=== PATIENT | female | born 1980 | race Caucasian/White ===

== ENCOUNTER 2022-12-07 16:15 | Emergency (ER) | payer OTHER, SELFPAY ==
--- NOTE | ~2022-12-07 | XR_ITS ---
EXAMINATION: Right knee. Right hip and AP pelvis. CLINICAL INDICATIONS: Pain. No injury. COMPARISON: None. TECHNIQUE: 4 views right knee and 3 views AP pelvis and right hip. FINDINGS: RIGHT KNEE: The tricompartment joint space is maintained normal. No fracture, loose bodies or joint effusion. There is minimal grade 1 lateral subluxation of patella. This could be secondary laxity of the patellar tendon. AP PELVIS AND RIGHT HIP: There is normal symmetry of bilateral SI joints and hip joints. No visible fracture or dislocation seen pelvis. AP and frog-leg views right hip reveals no bony erosive changes, loose bodies or spurring. The soft tissues are normal. XR/XR hip RT min 2V IMPRESSION: Minimal lateral subluxation of patella likely laxity of patellar tendon. No acute fracture or dislocation. Unremarkable AP pelvis and right hip exam..
--- NOTE | ~2022-12-07 | XR_ITS ---
EXAMINATION: Right knee. Right hip and AP pelvis. CLINICAL INDICATIONS: Pain. No injury. COMPARISON: None. TECHNIQUE: 4 views right knee and 3 views AP pelvis and right hip. FINDINGS: RIGHT KNEE: The tricompartment joint space is maintained normal. No fracture, loose bodies or joint effusion. There is minimal grade 1 lateral subluxation of patella. This could be secondary laxity of the patellar tendon. AP PELVIS AND RIGHT HIP: There is normal symmetry of bilateral SI joints and hip joints. No visible fracture or dislocation seen pelvis. AP and frog-leg views right hip reveals no bony erosive changes, loose bodies or spurring. The soft tissues are normal. XR/XR knee RT 4V IMPRESSION: Minimal lateral subluxation of patella likely laxity of patellar tendon. No acute fracture or dislocation. Unremarkable AP pelvis and right hip exam..
[2022-12-07 16:23] VITALS: BP 112/86; PULSE 107; O2SAT 99
--- NOTE | 2022-12-07 16:23 | ED_ITS ---
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 Patient states that she has had this problem before but nobody could figure it out. Patient reports that the pain is at the right hip and then she feels numbness at the right knee but denies any numbness or tingling in the quad or hamstring area. She denies any numbness or tingling into the distal extremity and states that she feels like her knee just simply gives out while walking. Patient denies any fever, chills. Patient [place] and is concerned about how she is going to get back home. <Luz Maria Escalante MD - Last Filed: 12/07/22 20:02> Related Data Allergies/Adverse Reactions: Allergies Allergy/AdvReac Type Severity Reaction Status Date / Time Penicillins Allergy Rash Verified 12/07/22 16:32 Sulfa (Sulfonamide Allergy Rash Verified 12/07/22 16:32 Antibiotics) <Sophie Steve NP - Last Filed: 12/07/22 16:36> Review of Systems Review of Systems: Pertinent positives and negatives as stated in HPI <Luz Maria Escalante MD - Last Filed: 12/07/22 20:02> PMFSH Past Medical History Source: nursing notes reviewed <Luz Maria Escalante MD - Last Filed: 12/07/22 20:02> Social History Social History: Social History Advance Directives: No Advance Directives Information Provided: No <Sophie Steve NP - Last Filed: 12/07/22 16:36> Physical Exam Vital Signs: Vital Signs: Last Vital Signs Temp 97.3 F 12/07/22 16:32 Pulse 74 12/07/22 18:37 Resp 18 12/07/22 16:32 BP 148/92 H 12/07/22 18:37 Pulse Ox 97 12/07/22 16:32 O2 Del Method Room Air 12/07/22 16:32 BMI result Body Mass Index 40.8 <Sophie Steve NP - Last Filed: 12/07/22 16:36> Vital Signs: Last Vital Signs Temp 97.3 F 12/07/22 16:32 Pulse 74 12/07/22 18:37 Resp 18 12/07/22 16:32 BP 148/92 H 12/07/22 18:37 Pulse Ox 97 12/07/22 16:32 O2 Del Method Room Air 12/07/22 16:32 BMI result Body Mass Index 40.8 VITAL SIGNS: Reviewed. GENERAL: Well developed, well nourished, in no acute distress. HEAD: Normocephalic/atraumatic EYES: PERRLA, EOMI EARS: Ext canals without abnormality, TMs non-bulging and non-erythematous NOSE: Nares patent bilateral OROPHARYNX: no oral lesions noted, posterior pharynx clear NECK: Supple, no adenopathy LUNGS: Normal breath sounds. No adventitious sounds or accessory muscle use. SpO2<97> CARDIOVASCULAR: Regular rate and rhythm without noted murmurs, no JVD or lower extremity edema. ABDOMEN: Soft, non-tender, non-distended with bowel sounds. MUSCULOSKELETAL: No tenderness, deformities, or effusions noted on gross inspection. EXTREMITIES: No cyanosis, clubbing or edema; RIGHT LOWER EXTREMITY: There is no obvious deformity, patient is able to actively flex and extend at the knee without any popping or cracking, foot is warm with sensation intact and palpable DP/PT. Patient is also noted to be able to a hip flex. SKIN: Inspection of the skin reveals no rashes NEUROLOGIC: Alert and oriented x 4. Strength and sensation to light touch were grossly intact x 4. <Luz Maria Escalante MD - Last Filed: 12/07/22 20:02> Course Course Course Narrative: This is rapid medical exam. Deferred additional HPI, ROS, PE to primary provider. 42 yo female with history of chronic knee/hip pain, anxiety, depression, asthma here with complaints of right knee/hip pain which has been worsened over the last few days. Has been seen by her PCP with no diagnosis. Has not been seen by an orthopedic for this. Has been taking motrin with continued pain. Feels that her knee is unstable when she is walking and going up the stairs has been difficult. Will obtain x-rays. VSS <Sophie Steve NP - Last Filed: 12/07/22 16:36> Medical Decision Making Medical Decision Making MDM Narrative: 42-year-old female with history and clinical presentation that is not consistent with leg pain associated with underlying back issue, the numbness that patient describes at her right knee is not associated with a dermatomal level again arguing against lower back as the etiology. Patient is able to flex and extend the knee, there is no edema so doubt any evidence of infection and the knee is non erythematous. Patient's description of hip discomfort would suggest a possible impingement or lateral femoral nerve involvement. Patient was instructed that treatment for this will be analgesics and possible physical therapy she then stated that she has difficulty getting to appointments. She is otherwise hemodynamically stable, she will be provided with crutches and given a referral to follow-up with orthopedic surgery for further imaging as indicated. <Luz Maria Escalante MD - Last Filed: 12/07/22 20:02> Differential Diagnosis Please see the discussion above <Luz Maria Escalante MD - Last Filed: 12/07/22 20:02> Radiology Impression Radiologist Impression: My interpretation is in agreement with radiology's impression of the imaging studies. <Luz Maria Escalante MD - Last Filed: 12/07/22 20:02> Discharge Plan Discharge Clinical Impression: Right hip impingement syndrome, Knee pain <Sophie Steve NP - Last Filed: 12/07/22 16:36> Patient Disposition: Home, Self-Care <Sophie Steve NP - Last Filed: 12/07/22 16:36> Instructions: Crutch Instructions (ED), Knee Pain (ED), Hip Impingement (ED) <Sophie Steve NP - Last Filed: 12/07/22 16:36> Additional Instructions: 1. Please resume all home medications as prescribed. 2. Tylenol 1000 mg, orally, every 6 hours as needed for pain control. Do not exceed 4000 mg within 24 hours. 3. Ibuprofen 400 mg, orally with milk or food, every 6 hours as needed for pain control. Please take with the Tylenol for additional symptom relief. 4. You may consider lidocaine patch apply to area of maximal tenderness as directed on the outside packaging 5. You have been provided with a referral to follow-up with Orthopedics, please call the office in the morning to set up an appointment for re-evaluation. Return to the ER for any worsening symptoms. <Sophie Steve NP - Last Filed: 12/07/22 16:36> Referrals: Arie Fernandes MD [Physician] - (42F with what appears to be ?rt hip impingement.) <Sophie Steve NP - Last Filed: 12/07/22 16:36> Stand Alone Forms: Work/School Release <Sophie Steve NP - Last Filed: 12/07/22 16:36>
[2022-12-07 16:32] VITALS: BP 157/82; PULSE 107; RESP 18; TEMP 36.3; O2SAT 97; BMI 40.8
[2022-12-07 18:37] VITALS: BP 148/92; PULSE 74
--- NOTE | 2022-12-07 18:53 | PC.NURSE ---
pt present via sts that she cannot walk on her left leg- pt was given sandwich and gingerale per request
[2022-12-07] MEDS: Ibuprofen 400 MG TABLET PO (20:16)
[2022-12-07] MEDS: Acetaminophen 325 MG TABLET 975 MG PO (20:16)
== END 2022-12-07 21:25 | disposition home or self-care (01) ==
PROVIDERS: Emergency Provider Student in an Organized Health Care Education/Training Program
DX: M25.851 Other specified joint disorders, right hip (principal); M25.561 Pain in right knee; M25.551 Pain in right hip
CPT/HCPCS: 73502; 73564; 99283

== ENCOUNTER 2023-02-01 08:16 | Outpatient (REF) | payer OTHER, SELFPAY | END 2023-02-01 08:17 | disposition home or self-care (01) | LOC: HO.HOSX 08:16 | PROVIDERS: Visit Provider Physician Assistant | DX: Z13.89 Encounter for screening for other disorder (principal) ==